=== PATIENT | female | born 2000 | race Caucasian/White ===

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

== ENCOUNTER → 2020-05-19 | Outpatient (CLI) | payer OTHER, SELFPAY ==
[2020-05-19 09:03] VITALS: BMI 30.4
[2020-05-19 12:43] LABS: Absolute Lymphocyte Count 2.81 X10^3/uL (0.83-4.51); Absolute Neutrophil Count 5.2 X10^3/uL (2.0-7.7); Basophil# 0.05 X10^3/uL; Basophil% 0.6 % (0-1); Eosinophil# 0.25 X10^3/uL; Eosinophils% 2.8 % (0-5); Hematocrit 44.6 % (37-47); Hemoglobin 14.1 g/dL (12.0-15.0); Lymphocyte # 2.81 X10^3/ul (4.0); Lymphocyte % 31.5 % (19-41); Mean Corp Hgb Conc 31.6 g/dL (32-36); Mean Corpuscular Hgb 29.1 pg (27.0-32.0); Mean Platelet Vol. 9.2 fl (6.2-12.0); Monocyte# 0.63 X10^3/uL; Monocyte% 7.1 % (0-10); NRBC Flagged by Analyzer 0 % (0-5); Neutrophil # 5.16 X10^3/uL (2.7-7.7); Neutrophil % 57.8 % (47-70); Platelet Count 325 K/mm3 (150-450); RBC Distribution Width CV 12.2 % (11.6-14.6); RBC Distribution Width SD 40.9 fl (35.1-43.9); Red Blood Count 4.85 M/mm3 (4.2-5.4); White Blood Count 8.9 K/mm3 (4.4-11.0)
[2020-05-19 12:58] LABS: ALB/GLOB Ratio 1.1 RATIO (0.9-2.4); AST(SGOT) 13 U/L (15-37); Alanine Aminotransfer ALT/SGPT 19 U/L (13-56); Albumin, Serum 4.4 g/dL (3.2-5.0); Alkaline Phosphatase 74 U/L (45-117); Anion Gap 6 (5-15); BUN 10 mg/dL (7-18); BUN/Creat Ratio 14.2 RATIO (10-20); Calcium,Total 9.1 mg/dL (8.5-10.1); Chloride 106 mmol/L (98-107); EST Glomerular Filtration Rate 113 mL/min (>60); Est Glom Filt Rate - Afr Amer 137 mL/min (>60); Glucose 94 mg/dL (74-106); Potassium 3.8 mmol/L (3.5-5.1); Protein, Total 8.4 g/dL (6.4-8.2); Sodium Level 137 mmol/L (136-145); T4 Free Direct 1.16 ng/dL (0.76-1.46); Thyroid Stim Hormone (TSH) 3.38 uIU/mL (0.358-3.74)
== END | disposition home or self-care (01) ==
PROVIDERS: PCP Internal Medicine; Referring Provider Internal Medicine; Visit Provider Internal Medicine
DX: F32.9 Major depressive disorder, single episode, unspecified (principal); F41.9 Anxiety disorder, unspecified
CPT/HCPCS: 36415; 80053; 84439; 84443; 85025

== ENCOUNTER 2021-01-11 07:28 | Day surgery (SDC) | payer OTHER, SELFPAY ==
[2020-06-23 10:44] VITALS: BMI 30.1
[2021-01-11] VITALS (10 sets, daily range): BP systolic 88–127; BP diastolic 47–75; PULSE 58–92; RESP 16; TEMP 36–36.6; O2SAT 92–99; BMI 30.4
[2021-01-11 07:54] LABS: Internal QC Validated? YES +Cl - CLEAR BKGD; Pregnancy, Urine Negative Negative
[2021-01-11] MEDS: Lactated Ringers 1,000 ML 100 ML IV ×2 (08:10→10:35)
--- NOTE | 2021-01-11 09:02 | DCINST_ITS ---
Discharge Diet: Soft diet Discharge Activity: Return to Normal Activity Additional Activity Instructions:: Soft diet x 2 weeks Allergies/Adverse Reactions: Allergies No Known Allergies Allergy (Verified 01/06/21 11:36) Medications to take at Discharge Albuterol IH (ProAir) [Proair Hfa (SP)Vent Pts] 1 puff INHALATION DAILY PRN 01/06/21 Escitalopram Oxalate [Lexapro] 15 mg PO DAILY 01/11/21 Primary Care Physician: Nemo Easton PA [Primary Care Provider] - Test Results: Test results from this visit will be discussed in further detail at your follow- up appointment, if applicable.
--- NOTE | 2021-01-11 09:10 | TONS_PTH ---
PATIENT: SUSAN RODRIGUEZ LOC: [facility] [place] U#:[id number] AGE/SX: 20/F ROOM: RE01/11/[address]: Dr. Jake Frost MD : 2000 BED: DIS: 01/11/2021 SPEC #: [id number] RECD: 01/11/21 12:28 STATUS: RUI REQuan #: [id number] KOMAL: 01/11/21 09:[address]: Jake Frost DEPT: SURGICAL PATHOLOGY RECD BY: Shikha Alberts ENTERED: 01/12/21 07:45 SP TYPE: TONSILS OTHR DR: YESSI Landaverde Tissues: Tonsil, NOS Procedures: Surgery Specimen Level III HEADER OPERATION: Tonsillectomy PRE-OP DIAGNOSIS: Chronic tonsillitis TISSUE SUBMITTED: Bilateral tonsils, tie on right MICROSCOPIC DIAGNOSIS Right and left tonsils, bilateral tonsillectomies: Benign lymphoid hyperplasia, consistent with chronic tonsillitis. Organisms consistent with actinomyces. AM:maricel 01/13/2021 MICROSCOPIC DESCRIPTION Slides are reviewed. GROSS DESCRIPTION Received is one container labeled with the patient's name and designated tonsils - pin/tie on right are two tonsils that in aggregate weigh 14.4 gm. The right tonsil has a pin-tie on it and measures 3.2 x 2.2 x 1.5 cm. The left tonsil measures 3.5 x 2.3 x 1.5 cm. Both tonsils are similar in appearance. The external surfaces are pink-price, smooth, glistening and somewhat lobulated. Focally they are hemorrhagic, granular and bear cautery artifact. Serial cross sections through the tonsils reveal normal tonsillar architecture. Sections are submitted in two cassettes as follows: 1 - right tonsil, 2 - left tonsil. / AM:maricel 01/12/21 TC:5 CPT: 99709 x2
[2021-01-11] MEDS: Bupivacaine Mpf 0.5% 30 ML VIAL (09:54)
--- NOTE | 2021-01-11 10:11 | PCM.OPRPT ---
Report of Operation Date of Procedure: 01/11/21 Pre-Operative Diagnosis: chronic tonsillitis. tonsillar hypertrophy Post-Operative Diagnosis: same Surgery/Procedure Performed:: tonsillectomy Description of Surgical Findings:: 3+ tonsils Type of Anesthesia:: General Anesthesiologist: Umair Anne Estimated Blood Loss (mL): minimal Description of Procedure: The patient was taken to the OR on 152. The patient was placed in the supine position on the OR table. The patient was given sufficient general endotracheal anesthesia. The table was turned 90 degrees clockwise. A Apollo mouthgag was inserted into the patient's mouth. The patient was suspended on a Givens stand. The adenoid was inspected and found to be surgically absent. The right tonsil was grasped with an Allis clamp and removed using a bovie cautery. Absolute hemostasis was achieved using suction cautery. The left tonsil was grasped with an Allis clamp and removed using a bovie cautery. Absolute hemostasis was achieved using suction cautery. .5% marcaine was placed on an adenoid sponge and placed in each tonsillar fossa for one minute on each side and then removed. The gag was closed. It was re opened to inspect for bleeding and there was none. The gag was then removed. The patient was then awoken and brought to the recovery room in stable condition. Blood loss minimal, replacement none. Sponge, needle and instrument count were correct at the end of the procedure.
== END 2021-01-11 13:08 | disposition home or self-care (01) ==
LOC: SDC 07:29 → AC 07:30
PROVIDERS: Anesthesiology; PCP Physician Assistant; Referring Provider Otolaryngology; Visit Provider Otolaryngology
PROC: (CPT 42826; principal; 2021-01-11 08:55)
DX: J35.01 Chronic tonsillitis (principal); J45.909 Unspecified asthma, uncomplicated; Z79.51 Long term (current) use of inhaled steroids; Z20.822 Contact with and (suspected) exposure to COVID-19
CPT/HCPCS: 42826; 81025; 87426; 88304; J7120; A4216

== ENCOUNTER 2023-03-24 15:00 | Outpatient (RCR) | payer OTHER, SELFPAY ==
--- NOTE | 2023-02-28 07:59 | HP.PTEVAL ---
Patient's Visit Information SUSAN RODRIGUEZ is a 22 year old F referred to Physical Therapy by Dr. Елена Patten DC with a diagnosis of Acquired L hip dysplasia. Date of Evaluation: 02/23/23 Physical Therapist: Dallas Delgado DPT - Visit Plan Frequency: 2x /Week Duration: 6 Weeks Plan: Start with manual to L hip flexor group. Add in glute med/max strengthening. Add in core stability exercises without flaring her hip flexor. Add in hip ROM exercises working on restoring full mobility. - Subjective pt. is here today for her initial evaluation with diagnosis of L hip dysplasia. Pt. reports having increased L hip pain for years, but has become worse more recently. She was to have a hip labral repair a few years ago, but ultimately decided not to have done. Pt. is now having increased L hip pain with standing, walking and her job activities. 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 Pt. denies N/T in either LE. Pt. is having pain at anterior hip and occasionally laterally as well. Pt. reports no R hip pain currently. She is having issues with sleeping at times. She has pain with getting in/out of her car as well. Pt. is hopeful to avoid surgery and get back to all recreational and work activities without limitations. - Pain L hip pain Pain Intensity (Out of 10): 1 Pain Intensity Range: 0, 5 - Objective POSTURE: pt. has decent posture in stance. Normal and equal iliac crest heights. slight increase in lumbar lordosis. PALPATION: Pt. has increased tenderness at L hip flexor and anterior hip. Pt. has some mild pain with palpation of TFL and increase glute medius as well. No distal symptoms. NEURO: Pt. has normal sensation in BLEs and normal DTR of BLEs. Pt. is able to rise on heels and toes without issues. ROM: R hip: flexion 130deg NE, abd 45deg NE, ext 20deg NE, ER60 deg NE, IR 30deg NE. L hip: flexion 110deg mild increase NW, ext 20deg NE, ER 50deg mild increase NW, IR 25deg increase NW. Pt. has normal lumbar ext/flexion mild increase in low back pain, but no hip pain. MMT: RLE: 5/5 throughout. LLE: ankle and knee 5/5 throughout. L hip: flex 4/5 increase NW, abd 4/5 NE, ext 4+/5 NE, ER 4+/5 NE, IR 4+/5 NE. Core strength- fair-. GAIT: pt. has B femoral IR in stance, worse with gait. No major Trendelenburg noted. She is able to correct, but unable to maintain. SQUAT: fairly normal with a R lateral wt. shift noted. - Special Tests L Hip Scour: Positive L Hip FADDIR - Labrum: Positive L Hip Impingement Provocation - Labrum: Positive L Hip Omar - IT Band: Negative Comment: weakness of glute medius - Balance/Special Test Scores Lower Extremity Functional Score: 66 - Goals Goal 1:: LTG: Pt. to be I with HEP for core and hip strengthening. Goal Time Frame: 4-6 Weeks Goal 2:: LTG: Pt. to have no pain with walking and work related activities. Goal Time Frame: 4-6 Weeks Goal 3:: STG: pt. to be able to sit and walk without increase in psoas pain of L hip. Goal Time Frame: 2-4 Weeks Goal 4:: LTG: pt. to have increased core and hip strength to 5/5 throughout. Goal Time Frame: 4-6 Weeks Goal 5:: STG: Pt. to sleep throughout the night without increase in symptoms. Goal Time Frame: 2 Weeks - Rehabilitation Potential Physical Therapy Diagnosis: Pt. has signs and symptoms consistent with L hip dysplasia with most likely a L hip labral tear. I would suggest that she work on manual techniques to reduce psoas pain, strengthening core/hip and stretch of hip flexor and hip ROM as tolerated in order to get back to all previous activities. Rehabilitation Potential: Good - Anticipated Interventions Patient/Client Instruction: Educate patient on: Condition, Plan of Care, Risk Factors, Benefits of Fitness Program For the Purpose of:: To facilitate caregiver knowledge, To improve self management, To prevent re-injury, To improve ability to perform tasks related to life management, To improve tolerance to ADL's Therapeutic Exercise to Include: Strength training, Power training, Endurance training, Body mechanics, Postural training, Flexibilty training For the Purpose of:: To decrease pain, To increase ROM, To improve nutrient delivery to tissue, To increase oxygenation perfusion, To improve muscle performance and motor function, To improve ability to perform ADL's Thank you for the opportunity to evaluate your patient. For Medicare and Medicare HMO plans, please review the plan of care and approve it. It will need to be FAXED BACK to us at [phone] for Medicare purposes. For Medicare only, by signing this I certify the plan of care. Please let me know if there are questions or concerns regarding this plan of care. Physician Signature: Date:
--- NOTE | 2023-03-24 15:21 | HP.PTREVAL ---
Dr. Елена Patten, TIMA, It has been my pleasure to treat SUSAN RODRIGUEZ over the last 7 visits for Acquired Left hip dysplasia. Please see the progress note below for an update on the physical therapy plan of care! Subjective: Pt. reports being 96% better overall. No pain noted. Pt. pleased. Pt. reports having no issues with work or recreational activities at this point in time. Objective/Function: Pt. has good ROM, mild HS tightness. She has no symptoms with all ROM testing, even with PHONG and FADDIR movements. MMT: Pt. has equal and good strength 5/5 throughout BLEs. Pt. had very mild symptoms with L hip IR testing, but rest was normal. Pt. reports no pain or issues with walking, and no issues with work activities. GAIT: fairly normal gait pattern, she still has some mild B femoral IR during stance phase of gait pattern, but equally bilerally. No pain with squatting either. pt. is overall doing very well. Plan Plan: Pt. to trial exercises on her own then follow up with Pt if needed. If I do not hear from her in the next 2 weeks I will DC back to physician. Balance/Gait/Functional tests - Balance/Special Test Scores Lower Extremity Functional Score: 78 Goals Goal 1:: LTG: Pt. to be I with HEP for core and hip strengthening. Goal Time Frame: 4-6 Weeks Goal Progress: Goal Met Goal 2:: LTG: Pt. to have no pain with walking and work related activities. Goal Time Frame: 4-6 Weeks Goal Progress: Goal Met Goal 3:: STG: pt. to be able to sit and walk without increase in psoas pain of L hip. Goal Time Frame: 2-4 Weeks Goal Progress: Goal Met Goal 4:: LTG: pt. to have increased core and hip strength to 5/5 throughout. Goal Time Frame: 4-6 Weeks Goal Progress: Goal Met Goal 5:: STG: Pt. to sleep throughout the night without increase in symptoms. Goal Time Frame: 2 Weeks Goal Progress: Goal Met Anticipated Interventions Patient/Client Instruction: Educate patient on: Condition, Plan of Care, Risk Factors, Benefits of Fitness Program For the Purpose of:: To facilitate caregiver knowledge, To improve self management, To prevent re-injury, To improve ability to perform tasks related to life management, To improve tolerance to ADL's Therapeutic Exercise to Include: Strength training, Power training, Endurance training, Body mechanics, Postural training, Flexibilty training For the Purpose of:: To decrease pain, To increase ROM, To improve nutrient delivery to tissue, To increase oxygenation perfusion, To improve muscle performance and motor function, To improve ability to perform ADL's Please do not hesitate to contact me at [phone] by phone or if you have questions or concerns regarding this new plan of care! Sincerely, HIRAL LamT
--- NOTE | 2023-07-24 09:00 | HP.PT.NRP ---
Patient Information Patient Information: SUSAN RODRIGUEZ was seen in my office for initial evaluation on 02/23/23. The following Plan of Care was established for this patient: POC Established Initial Frequency: 2x /Week Initial Duration: 6 Weeks Anticipated Interventions Patient/Client Instruction: Educate patient on: Condition, Plan of Care, Risk Factors and Benefits of Fitness Program For the Purpose of:: To facilitate caregiver knowledge, To improve self management, To prevent re-injury, To improve ability to perform tasks related to life management and To improve tolerance to ADL's Therapeutic Exercise to Include: Strength training, Power training, Endurance training, Body mechanics, Postural training and Flexibilty training For the Purpose of:: To decrease pain, To increase ROM, To improve nutrient delivery to tissue, To increase oxygenation perfusion, To improve muscle performance and motor function and To improve ability to perform ADL's Last Seen Last Seen: This patient was last seen in our office 03/24/23. Pertinent comments regarding their Physical therapy will appear below: Pt. was seen for her hip dysplasia. She did very well with her strength. She was to complete exercises on her own at our last visit. Pt. has not been seen in several months and will be DC from PT at this point in time. At this point I will be discontinuing this patient from physical therapy. I would be happy to see this patient again in the future if found appropriate by the physician. Thank you! Dallas Delgado, DPT Balance/Gait/Functional tests Balance/Special Test Scores Lower Extremity Functional Score: 78
== END 2023-03-24 19:00 | disposition home or self-care (01) ==
LOC: PT 15:00
PROVIDERS: PCP Physician Assistant; Referring Provider Chiropractor; Visit Provider Chiropractor
DX: M21.852 Other specified acquired deformities of left thigh (principal); M99.05 Segmental and somatic dysfunction of pelvic region
CPT/HCPCS: 97110; 97161; 97164

== ENCOUNTER 2024-03-29 05:59 | Emergency (ER) | payer OTHER, SELFPAY ==
[2024-03-29 06:00] VITALS: BP 145/111; PULSE 87; RESP 16; TEMP 36; O2SAT 99; BMI 29.3
--- NOTE | 2024-03-29 06:07 | CT_ITS ---
STUDY: CT ABDOMEN AND PELVIS WITH CONTRAST REASON FOR EXAM: Female, 23 years old. Abdominal pain -- RADIATION DOSAGE (If Supplied By Facility): CTDIvol = ( 12.54 ) mGy, DLP = ( 762.12 ) mGycm TECHNIQUE: Transaxial images were obtained from the dome of the diaphragm to the symphysis pubis with oral contrast. IV ; 100mL Isovue-300 was administered. Sagittal and coronal images were reconstructed. Individualized dose optimization techniques were used for this CT. COMPARISON: None. FINDINGS: The visualized lung bases are unremarkable. The visualized portions of the heart are within normal limits. Normal liver. Normal gallbladder and extrahepatic biliary system. Normal spleen. Normal pancreas. Normal bilateral adrenal glands. Normal right kidney. Normal left kidney. Normal visualized stomach. Normal small intestine. Normal colon. The appendix is visualized and appears normal. Normal abdominal aorta. Normal inferior vena cava. Normal retroperitoneum. Normal urinary bladder. Normal visualized uterus. There are adnexal follicles. There is mild free fluid in the pelvis. Normal abdominal wall. Normal osseous structures. CT/Abdomen/Pelvis WITH Contrast IMPRESSION: Normal enhanced CT of the abdomen and pelvis. No mass or obstruction. No hydronephrosis. Electronically Signed: Lucas Chavez MD at 8:15 EDT ,
--- NOTE | 2024-03-29 06:08 | EDS_ITS ---
HPI HPI - GI History of Present Illness Chief Complaint: Abd Pain Detail of Chief Complaint: Abdominal pain Narrative Narrative: Patient presents with abdominal pain that she has had off and on for the last 2 days. Pain more continuous over the last several hours. She describes some mild nausea but no vomiting. Yesterday had some urinary frequency. Yesterday also had a small amount of vaginal bleeding and she is midcycle on her.. Her last period was 2 weeks ago. Patient has had no prior abdominal surgeries. She denies blood in her stool or black tarry stool. Last bowel movement was yesterday. Currently rates her pain a 5 out of 10. [facility] Medical History Acquired dysplasia of left hip Anxiety Depression Seasonal allergies Home Medications ?Medication ?Instructions ?Recorded ?Last Taken ?Type escitalopram oxalate 10 mg tablet 15 mg PO DAILY 01/11/21 Unknown History buspirone 5 mg tablet 5 mg PO BID 02/06/23 Unknown History Allergy/AdvReac Type Severity Reaction Status Date / Time No Known Allergies Allergy Verified 02/14/23 15:04 Family History Grandfather Hypertension Diabetes Myocardial infarction CVA (cerebral vascular accident) Surgical History H/O wisdom tooth extraction History of adenoidectomy Social History Smoking Status: Current every day smoker tobacco type: e-cigarettes Electronic Cigarette Use: with nicotine alcohol intake: current alcohol intake frequency: a few times a month substance use type: marijuana and other details: Medical marijuana card what type of physical activity do you participate in: walking, aerobics and weight training frequency: daily ROS ROS ED Review of Systems ROS Unobtainable: other Constitutional Constitutional ED: Reports lethargy; Denies chills, fever(s), sweats or weight loss Eyes Eyes: Denies blurry vision, change in vision or diplopia ENT ENT ED: Denies rhinorrhea or sore throat Cardiovascular Cardiovascular: Denies chest pain, orthopnea or racing heartbeat Respiratory/Chest Respiratory/Chest: Denies cough, dyspnea, dyspnea on exertion, orthopnea or sputum Gastrointestinal Gastrointestinal: Reports abdominal pain; Denies diarrhea, nausea or vomiting Genitourinary Genitourinary ED: Denies dysuria, hematuria or urinary frequency Musculoskeletal Musculoskeletal: Denies arthralgias, back pain, myalgias or neck pain Integumentary Denies abscess, Abrasions or rash Neurologic Neurologic: Denies headache(s) or weakness Psychiatric Psychiatric: Denies anxiety, depression or suicidal thoughts Endocrine Endocrinology: Denies polydipsia, polyphagia or polyuria Hematologic/Lymphatic Hematologic/Lymphatic: Denies easy bleeding, easy bruising or lymphadenopathy Allergic/Immunologic Allergic/Immunologic ED: Denies mouth swelling, tongue swelling or urticaria EXAM Physical Exam Const Vital Signs: 03/29/24 06:00 03/29/24 06:11 Temperature 96.8 F L Temperature Source Temporal Pulse Rate 87 70 Respiratory Rate 16 18 Blood Pressure 145/111 H 158/96 H Blood Pressure Mean 122 116 Pulse Ox 99 100 Oxygen Delivery Method Room Air Room Air Positive well nourished and well developed General Appearance ED: well developed and NAD HEENT Reports TM's clear and moist mucous membranes normocephalic and atraumatic; Negative for trauma or tenderness Tympanic Membrane ED: Yes TM's clear Eyes PERRL and EOMs intact bilaterally General Eye ED: Negative for pale conjunctiva or scleral icterus Neck no lymphadenopathy, supple and no JVD General: Negative for tenderness Chest Wall inspection of chest normal and palpation of chest normal Chest: Negative for tenderness Resp normal respiratory effort and clear to auscultation bilaterally Effort and Inspection: Negative for respiratory distress or pain with movement Auscultation: Negative for rhonchi, wheezes or diminished lung sounds Cardio regular rate, regular rhythm, S1 normal heart sound, S2 normal heart sound and no murmurs Peripheral Pulses: pulses 2+ throughout GI normal to inspection, nondistended, normoactive bowel sounds, soft to palpation, non-distended and no masses GI Narrative: Tenderness palpation to the lower abdomen over the right lower quadrant seems to be point of maximum tenderness. Also with mild tenderness over the suprapubic region. There is no rebound, rigidity, or peritoneal signs. No mass palpated. Back/Spine no CVA tenderness and no thoracic nor lumbar tenderness Extremity normal to inspection General Extremety ED: Negative for edema General Extremity: Negative for edema Neuro oriented x3, CN's II-XII intact bilaterally, no sensory deficits noted and gait normal Sensorium / Orientation: awake, alert, oriented to person, oriented to place and oriented to time Motor Exam: strength 5/5 throughout and strength abnormal Psych mental status grossly normal Skin no rashes or lesions noted and no wounds MDM MDM MDM Narrative Medical decision making narrative: Patient presents with abdominal pain for several days that seems to be more localized to the right lower quadrant. Patient midcycle on her menstrual period. Will obtain basic labs as well as test and urinalysis. Will obtain a CT scan of the abdomen pelvis with IV p.o. contrast to rule out appendicitis. Patient was medicated with morphine and Zofran. Care of patient will be turned over to morning physician awaiting CT results and final disposition. Lab Data Attestation: I reviewed the patient's lab results. Labs: Laboratory Results - last 24 hr 03/29/24 06:11 WBC 9.0 RBC 4.46 Hgb 13.0 Hct 41.0 MCV 91.9 MCH 29.1 MCHC 31.7 L RDW Std Deviation 40.7 RDW Coeff of George 11.9 Plt Count 260 MPV 9.0 Immature Gran % (Auto) 0.300 Neut % (Auto) 56.0 Lymph % (Auto) 33.4 [place] % (Auto) 6.5 Eos % (Auto) 3.1 Baso % (Auto) 0.7 Absolute Neuts (auto) 5.0 Absolute Lymphs (auto) 3.00 Nucleated RBC % 0 Sodium 139 Potassium 3.3 L Chloride 109 H Carbon Dioxide 26.0 Anion Gap 4 L BUN 8 Creatinine 0.68 Estim Creat Clear Calc 124.88 Est GFR (MDRD) Af Amer 138 Est GFR (MDRD) Non-Af 114 BUN/Creatinine Ratio 11.8 Glucose 97 Calcium 8.8 Total Bilirubin 0.30 AST 14 L ALT 18 Alkaline Phosphatase 50 Total Protein 6.9 Albumin 3.8 Globulin 3.1 Albumin/Globulin Ratio 1.2 Lipase 22 Discharge Plan Triage Chief Complaint: Abd Pain ED Provider: Becky Torres Dx/Rx/DC Orders Clinical Impression: Abdominal pain Prescriptions: No Action buspirone 5 mg tablet 5 mg PO BID escitalopram oxalate 10 MG tablet 15 mg PO DAILY Rx Instructions: CURRENTLY ON HOLD FOR THE PAST MONTH Primary Care Provider: Nemo Easton Referrals: Nemo Easton PA [Primary Care Provider] - Print Language: Luxembourgish
[2024-03-29 06:11] VITALS: BP 158/96; PULSE 70; RESP 18; O2SAT 100
[2024-03-29] MEDS: Ondansetron 4 MG/2 ML Vial IV (06:16)
[2024-03-29] MEDS: Morphine 4 MG/ML Syringe IV ×2 (06:16→08:15)
[2024-03-29] MEDS: 0.9% Normal Saline (1000mL) 1,000 ML 125 ML IV (06:17)
[2024-03-29 06:18] LABS: Basophil# 0.06 X10^3/uL; Basophil% 0.7 % (0-1); Eosinophil# 0.28 X10^3/uL; Eosinophils% 3.1 % (0-5); Lymphocyte % 33.4 % (19-41); Mean Corp Hgb Conc 31.7 g/dL (32-36); Mean Corpuscular Hgb 29.1 pg (27.0-32.0); Mean Corpuscular Volume 91.9 fL (81-99); Monocyte# 0.58 X10^3/uL; Monocyte% 6.5 % (0-10); NRBC Flagged by Analyzer 0 % (0-5); Neutrophil # 5.03 X10^3/uL (2.7-7.7); Platelet Count 260 K/mm3 (150-450); RBC Distribution Width CV 11.9 % (11.6-14.6); RBC Distribution Width SD 40.7 fl (35.1-43.9); Red Blood Count 4.46 M/mm3 (4.2-5.4)
[2024-03-29 06:36] LABS: ALB/GLOB Ratio 1.2 RATIO (0.9-2.4); AST(SGOT) 14 U/L (15-37); Alanine Aminotransfer ALT/SGPT 18 U/L (13-56); Albumin, Serum 3.8 g/dL (3.2-5.0); Alkaline Phosphatase 50 U/L (45-117); Anion Gap 4 (5-15); BUN 8 mg/dL (7-18); BUN/Creat Ratio 11.8 RATIO (10-20); Calcium,Total 8.8 mg/dL (8.5-10.1); Chloride 109 mmol/L (98-107); Creatinine, Serum 0.68 mg/dL (0.55-1.02); EST Glomerular Filtration Rate 114 mL/min (>60); Est Glom Filt Rate - Afr Amer 138 mL/min (>60); Estimated Creatinine Clearance 124.88 ml/min; Globulin 3.1 g/dL (2.2-4.2); Glucose 97 mg/dL (74-106); Lipase 22 U/L (13-75); Potassium 3.3 mmol/L (3.5-5.1); Protein, Total 6.9 g/dL (6.4-8.2); Sodium Level 139 mmol/L (136-145)
[2024-03-29 06:43] LABS: Internal QC Validated? YES +Cl - CLEAR BKGD; Pregnancy, Serum, hCG Quali. NEGATIVE Negative
[2024-03-29 07:03] LABS: Mucous, Urine 0 SEEN /hpf (<or=2+)
[2024-03-29 07:35] LABS: Color, Urine Yellow (Yellow); Glucose, Dipstick Normal (Normal); Ketone-Dipstick Negative (Negative); Leukocyte Esterase-Dipstick 100 /ul (Negative); Nitrite-Dipstick Negative (Negative); Occult Blood-Urine 25 /ul (Negative); Protein-Dipstick Negative (Negative); Specific Gravity, Urine 1.015 (1.002-1.030); Urine Bilirubin Dipstick Negative (Negative); Urine Clarity Clear (Clear); Urine Urobilinogen Normal (Normal); Urine pH 6.5 (5.0 - 8.0)
[2024-03-29 07:55] LABS: Bacteria 1+ /hpf (None Seen); Red Blood Cells-Urine 0-5 SEEN /hpf (0-5); White Blood Cells 10-25 SEEN /hpf (0-5)
[2024-03-29 07:58] LABS: Squamous Epithelial Cells - UA 0-5 SEEN /hpf (5-10)
[2024-03-29 08:00] VITALS: BP 148/88; PULSE 71; RESP 16; O2SAT 100
[2024-03-29] MEDS: Ketorolac 15 MG/ML Vial IV (08:15)
[2024-03-29 10:00] VITALS: BP 136/84; PULSE 74; RESP 16; O2SAT 98
[2024-03-29 10:07] VITALS: BP 136/84; PULSE 74; RESP 16; TEMP 37.1; O2SAT 98
== END 2024-03-29 10:09 | disposition home or self-care (01) ==
PROVIDERS: Emergency Provider Emergency Medicine; PCP Physician Assistant; Visit Provider Emergency Medicine
DX: R10.9 Unspecified abdominal pain (principal); F17.290 Nicotine dependence, other tobacco product, uncomplicated; R35.0 Frequency of micturition
CPT/HCPCS: 74177; 80053; 81001; 83690; 84703; 85025; 87086; 87088; 96361; 96374; 96375; 96376; 99283; J7030; Q9967; A4216; J2405

== ENCOUNTER → 2024-04-11 | Outpatient (CLI) | payer OTHER, SELFPAY ==
--- NOTE | 2024-04-11 14:24 | US_ITS ---
STUDY: ULTRASOUND OF THE FEMALE PELVIS - COMPLETE REASON FOR EXAM: Female, 23 years old. ABD PAIN LMP: March 18, 2024 TECHNIQUE: Transabdominal TECHNICAL QUALITY: Adequate. COMPARISON: None. FINDINGS: The uterus is retroverted and is in a midline position. The uterus measures 8.6 cm x 5.6 x 4.6 cm. Normal uterine cervix. The endometrium measures 8.6 mm in thickness, and is hyperechoic. There is no demonstrated endometrial mass. There is no demonstrated myometrial mass. I.U.D. - The patient does not have an I.U.D. The right ovary is visualized. The right ovary measures 4.4 cm x 4.2 cm x 3.2 cm. There is a 3.2 cm x 2.9 cm x 2.8 cm complex cyst in the right ovary. There is no visualized right adnexal mass or complex lesion. There is normal arterial and normal venous vascularity. The left ovary is visualized. The left ovary measures 4 cm x 2.4 cm x 1.8 cm. There is no left ovarian cyst or ovarian mass. There is no visualized left adnexal mass or complex lesion. There is normal arterial and normal venous vascularity. There is minimal fluid in the cul-de-sac. The pre void volume of the bladder was 285 ml. US/Pelvic (Non ) IMPRESSION: 3.2 cm x 2.9 cm x 2.8 cm complex cyst in the right ovary. Follow-up recommended. Electronically Signed: Richard Shore MD at 10:53 EDT ,
== END | disposition home or self-care (01) ==
LOC: US 14:21
PROVIDERS: PCP Physician Assistant; Referring Provider Physician Assistant; Visit Provider Physician Assistant
DX: R10.9 Unspecified abdominal pain (principal)
CPT/HCPCS: 76856

== ENCOUNTER 2024-04-20 08:04 | Emergency (ER) | payer OTHER, SELFPAY ==
[2024-04-20 08:05] VITALS: BP 156/90; PULSE 69; RESP 14; TEMP 36.2; O2SAT 98; BMI 29.5
[2024-04-20 08:06] VITALS: BP 156/90; PULSE 69; RESP 14; O2SAT 99
--- NOTE | 2024-04-20 08:32 | US_ITS ---
INDICATION: right ovarian cyst, increased pain EXAMINATION: Ultrasound US Transvaginal Non-OB TECHNIQUE: Transvaginal (for optimal evaluation of the adnexa) pelvic ultrasound was performed. Grayscale, spectral waveform, and color flow Doppler evaluation of the adnexa. COMPARISON: No relevant prior comparison study available FINDINGS: UTERUS: Retroflexed. The uterus measures 7.4 x 4.4 x 3.8 cm. There is no uterine mass. The endometrial stripe measures 4 mm in AP diameter which is within normal limits. RIGHT OVARY: 4.1 x 2.6 x 2.5 cm. Non-enlarged, normal echogenicity. Dominant follicle in right ovary measuring 1.5 cm. There is normal arterial inflow and venous outflow present in the right ovary. LEFT OVARY: 4 x 2.5 x 1.7 cm. Non-enlarged, normal echogenicity. There is normal arterial inflow and venous outflow present in the left ovary. FREE FLUID: Mild free fluid in the right adnexal region. US/Transvaginal Non- IMPRESSION: Mild free fluid pelvis. Otherwise essentially unremarkable examination. Electronically Signed: Isrrael Arciniega MD at 10:42 EDT ,
--- NOTE | 2024-04-20 08:32 | US_ITS ---
INDICATION: abd pain EXAMINATION: Ultrasound US Abdomen Limited (quadrant) TECHNIQUE: Smith scale and color doppler imaging was performed of the right upper quadrant. COMPARISON: CT scan of the abdomen and pelvis of 03/29/2024 FINDINGS: LIVER: The liver is normal in size and echogenicity measuring about 16.6 cm in length. The portal vein is patent with normal hepatopedal flow. No focal hepatic lesion. There is no free fluid. GALLBLADDER AND BILIARY TREE: No shadowing gallstone, pericholecystic fluid or gallbladder wall thickening is demonstrated. The gallbladder wall measures 2 mm. The proximal common bile duct measures 2.5 mm, which is within normal limits for the patient''s age. Sonographic Ledesma''s sign: Negative. PANCREAS: No focal abnormality is demonstrated in the pancreas. No pancreatic ductal dilatation. RIGHT KIDNEY: Right kidney measures 10.5 cm in length. The renal cortex measures 1 cm. No evidence of hydronephrosis. US/Gallbladder IMPRESSION: No acute sonographic abnormality is demonstrated in the right upper quadrant. Electronically Signed: Isrrael Arciniega MD at 10:39 EDT ,
[2024-04-20] MEDS: Ondansetron 4 MG/2 ML Vial IV (08:42)
[2024-04-20] MEDS: Morphine 4 MG/ML Syringe IV (08:43)
[2024-04-20 09:00] LABS: Absolute Lymphocyte Count 2.87 X10^3/uL (0.83-4.51); Absolute Neutrophil Count 4.4 X10^3/uL (2.0-7.7); Basophil# 0.07 X10^3/uL; Basophil% 0.9 % (0-1); Eosinophils% 3.7 % (0-5); Hematocrit 35.5 % (37-47); Hemoglobin 11.5 g/dL (12.0-15.0); Lymphocyte # 2.87 X10^3/ul (0.83-4.51); Mean Corp Hgb Conc 32.4 g/dL (32-36); Mean Corpuscular Hgb 29.4 pg (27.0-32.0); Mean Corpuscular Volume 90.8 fL (81-99); Mean Platelet Vol. 9.3 fl (6.2-12.0); Monocyte# 0.58 X10^3/uL; Monocyte% 7.1 % (0-10); NRBC Flagged by Analyzer 0 % (0-5); Neutrophil # 4.36 X10^3/uL (2.7-7.7); Neutrophil % 53.2 % (47-70); POSITIVE COUNT YES; RBC Distribution Width CV 11.6 % (11.6-14.6); RBC Distribution Width SD 38.6 fl (35.1-43.9); Red Blood Count 3.91 M/mm3 (4.2-5.4); White Blood Count 8.2 K/mm3 (4.4-11.0)
[2024-04-20 09:06] LABS: Internal QC Validated? YES +Cl - CLEAR BKGD; Pregnancy, Serum, hCG Quali. NEGATIVE Negative
[2024-04-20] MEDS: 0.9% Normal Saline (1000mL) 1,000 ML 150 ML IV (09:16)
[2024-04-20 09:17] LABS: AST(SGOT) 25 U/L (15-37); Alanine Aminotransfer ALT/SGPT 16 U/L (13-56); Albumin, Serum 3.8 g/dL (3.2-5.0); Alkaline Phosphatase 76 U/L (45-117); Anion Gap 6 (5-15); BUN 11 mg/dL (7-18); Calcium,Total 9.2 mg/dL (8.5-10.1); Chloride 106 mmol/L (98-107); Creatinine, Serum 0.73 mg/dL (0.55-1.02); EST Glomerular Filtration Rate 104 mL/min (>60); Est Glom Filt Rate - Afr Amer 126 mL/min (>60); Estimated Creatinine Clearance 116.82 ml/min; Globulin 3.9 g/dL (2.2-4.2); Glucose 91 mg/dL (74-106); Potassium 3.8 mmol/L (3.5-5.1); Protein, Total 7.7 g/dL (6.4-8.2); Sodium Level 137 mmol/L (136-145)
[2024-04-20 09:24] LABS: Differential Indicated SCAN CRITERIA MET; Platelet Estimate ADEQUATE (ADEQ)
[2024-04-20 10:00] LABS: Mucous, Urine 0 SEEN /hpf (<or=2+)
[2024-04-20 10:02] LABS: Color, Urine Yellow (Yellow); Glucose, Dipstick Normal (Normal); Ketone-Dipstick Negative (Negative); Leukocyte Esterase-Dipstick 25 /ul (Negative); Nitrite-Dipstick Negative (Negative); Occult Blood-Urine 10 /ul (Negative); Protein-Dipstick 15 mg/dl (Negative); Specific Gravity, Urine 1.015 (1.002-1.030); Urine Bilirubin Dipstick Negative (Negative); Urine Clarity Sl. Cloudy (Clear); Urine Urobilinogen Normal (Normal)
[2024-04-20 10:09] LABS: Bacteria 2+ /hpf (None Seen); Calcium Oxalate Crystals Ur RARE /hpf (<or=2+); Red Blood Cells-Urine 0-5 SEEN /hpf (0-5); Squamous Epithelial Cells - UA 0-5 SEEN /hpf (5-10); White Blood Cells 0-5 SEEN /hpf (0-5)
--- NOTE | 2024-04-20 10:42 | EX.ED.DYSGE1 ---
HPI History of Present Illness Chief Complaint: Abd Pain Informant: patient Onset/Context/Timing Timing: Waxes and wanes Narrative Narrative: Patient presents secondary to worsening right-sided abdominal pain. Patient was initially seen here on March 29 and had a negative workup with a normal CT. She had an outpatient pelvic ultrasound on April 11 that revealed a 3 cm complex right ovarian cyst. Patient states has been having waxing and waning pain, but pain has been significantly worse since 3 AM this morning. No fever or chills. She states her primary care physician was also trying to get a right upper quadrant ultrasound to ensure no acute gallbladder abnormalities given her pain tends to be in the mid right abdomen. [facility] Medical History Seasonal allergies Acquired dysplasia of left hip Anxiety Depression Home Medications ?Medication ?Instructions ?Recorded ?Last Taken ?Type escitalopram oxalate 10 mg tablet 15 mg PO DAILY 01/11/21 Unknown History buspirone 5 mg tablet 5 mg PO BID 02/06/23 Unknown History ibuprofen 600 mg tablet 600 mg PO Q6H PRN PRN pain #20 03/29/24 Unknown Rx TABLETS Allergy/AdvReac Type Severity Reaction Status Date / Time No Known Allergies Allergy Verified 04/20/24 08:06 Family History Grandfather Hypertension Diabetes Myocardial infarction CVA (cerebral vascular accident) Surgical History History of adenoidectomy H/O wisdom tooth extraction Social History Smoking Status: Current every day smoker tobacco type: e-cigarettes Electronic Cigarette Use: with nicotine alcohol intake: current alcohol intake frequency: a few times a month substance use type: marijuana and other details: Medical marijuana card what type of physical activity do you participate in: walking, aerobics and weight training frequency: daily ROS ROS ED Constitutional Constitutional ED: Denies chills or fever(s) Eyes Eyes: Denies change in vision ENT ENT ED: Denies rhinorrhea or sore throat Cardiovascular Cardiovascular: Denies chest pain or palpitations Respiratory/Chest Respiratory/Chest: Denies cough or dyspnea Gastrointestinal Gastrointestinal: Reports abdominal pain; Denies diarrhea, nausea or vomiting Genitourinary Genitourinary ED: Denies dysuria Musculoskeletal Musculoskeletal: Denies back pain or extremity pain Integumentary Denies Abrasions or rash Neurologic Neurologic: Denies headache(s) or weakness Psychiatric Psychiatric: Denies anxiety or depression Allergic/Immunologic Allergic/Immunologic ED: Denies lip swelling or urticaria EXAM Physical Exam Const Vital Signs: 04/20/24 08:05 04/20/24 08:06 Temperature 97.2 F L Temperature Source Temporal Pulse Rate 69 69 Respiratory Rate 14 14 Blood Pressure 156/90 H 156/90 H Blood Pressure Mean 112 112 Pulse Ox 98 99 Oxygen Delivery Method Room Air Positive well nourished and well developed General Appearance ED: well developed HEENT Reports moist mucous membranes Eyes EOMs intact bilaterally Chest Wall inspection of chest normal and palpation of chest normal Resp normal respiratory effort and clear to auscultation bilaterally Cardio regular rate and regular rhythm GI GI Narrative: Abdomen soft with moderate tenderness to the right mid abdomen. No guarding or rebound. No palpable masses. Extremity normal to inspection Neuro oriented x3 and no sensory deficits noted Motor Exam: strength 5/5 throughout Psych mental status grossly normal Skin no rashes or lesions noted MDM MDM MDM Narrative Medical decision making narrative: IV line initiated. Patient has already had ibuprofen and Tylenol this morning. She is given a dose of morphine and Zofran. Labwork obtained to evaluate for leukocytosis, anemia, and electrolyte derangement. Urinalysis obtained to evaluate for infection/hematuria. Ultrasound of the gallbladder as well as pelvic ultrasound to evaluate for possible torsion is obtained. History & Record Review Discussion w/independent historian: Patient and Family Additional record(s) reviewed:: Prior outpatient record, Prior ED visit and Prior labs Lab Data Attestation: I reviewed the patient's lab results. Labs: Laboratory Results - last 24 hr 04/20/24 04/20/24 08:51 09:55 WBC 8.2 RBC 3.91 L Hgb 11.5 L Hct 35.5 L MCV 90.8 MCH 29.4 MCHC 32.4 RDW Std Deviation 38.6 RDW Coeff of George 11.6 Plt Count TNP MPV 9.3 Immature Gran % (Auto) 0.100 Neut % (Auto) 53.2 Lymph % (Auto) 35.0 [place] % (Auto) 7.1 Eos % (Auto) 3.7 Baso % (Auto) 0.9 Absolute Neuts (auto) 4.4 Absolute Lymphs (auto) 2.87 Nucleated RBC % 0 Platelet Estimate ADEQUATE Sodium 137 Potassium 3.8 Chloride 106 Carbon Dioxide 25.0 Anion Gap 6 BUN 11 Creatinine 0.73 Estim Creat Clear Calc 116.82 Est GFR (MDRD) Af Amer 126 Est GFR (MDRD) Non-Af 104 BUN/Creatinine Ratio 15.0 Glucose 91 Calcium 9.2 Total Bilirubin 0.20 AST 25 ALT 16 Alkaline Phosphatase 76 Total Protein 7.7 Albumin 3.8 Globulin 3.9 Albumin/Globulin Ratio 1.0 Serum , Qual NEGATIVE Urine Color Yellow Urine Clarity Sl. Cloudy Urine pH 6.0 Ur Specific Lewis 1.015 Urine Protein 15 H Urine Glucose (UA) Normal Urine Ketones Negative Urine Occult Blood 10 H Urine Nitrite Negative Urine Bilirubin Negative Urine Urobilinogen Normal Ur Leukocyte Esterase 25 H Urine RBC 0-5 SEEN Urine WBC 0-5 SEEN Ur Squamous Epith Cells 0-5 SEEN Calcium Oxalate Crystal RARE Urine Bacteria 2+ Urine Mucus 0 SEEN Radiography Diagnostic Testing: Clinical Impression(s) from Imaging Studies Gallbladder Ultrasound 04/20/24 08:32 IMPRESSION: No acute sonographic abnormality is demonstrated in the right upper quadrant. Electronically Signed: Isrrael Arciniega MD at 10:39 EDT , Transvaginal US 04/20/24 08:32 IMPRESSION: Mild free fluid pelvis. Otherwise essentially unremarkable examination. Electronically Signed: Isrrael Arciniega MD at 10:42 EDT , Treatment and Re-Evaluation :: CBC was normal white count of 8.2 with normal differential. Hemoglobin is 11.5. Chemistry studies unremarkable with normal renal function. LFTs are normal. test negative. Urinalysis reveals 2+ bacteria with 0-5 white cells, 0-5 epithelials, no nitrites. Patient has no urinary symptoms. Right upper quadrant ultrasound reveals no acute abnormalities. Pelvic ultrasound reveals a dominant follicle in the right ovary. No evidence of an ovarian cyst at this time. Mild free fluid noted. Test results discussed with patient and mother at bedside. I do feel that her increased pain was secondary to her ovarian cyst rupturing. As fluid reabsorbs her pain should improve. Patient will follow-up with [employer] as previously scheduled. Discharge Plan Triage Chief Complaint: Abd Pain ED Provider: Jennifer Arambula Dx/Rx/DC Orders Clinical Impression: Ovarian cyst Instructions: ED Ovarian Cyst Prescriptions: No Action buspirone 5 mg tablet 5 mg PO BID escitalopram oxalate 10 MG tablet 15 mg PO DAILY Rx Instructions: CURRENTLY ON HOLD FOR THE PAST MONTH ibuprofen 600 mg tablet 600 mg PO Q6H PRN PRN (Reason: pain) Qty: 20 0RF Primary Care Provider: Nemo Easton Referrals: Nemo Easton PA [Primary Care Provider] - 1 Week if not improving Print Language: Upper Sorbian Disposition Disposition: Home, Self Care
[2024-04-20 11:18] VITALS: BP 113/74; PULSE 62; RESP 14; TEMP 36.4; O2SAT 98
== END 2024-04-20 11:19 | disposition home or self-care (01) ==
PROVIDERS: Emergency Provider Emergency Medicine; PCP Physician Assistant; Visit Provider Emergency Medicine
DX: N83.201 Unspecified ovarian cyst, right side (principal); F17.290 Nicotine dependence, other tobacco product, uncomplicated
CPT/HCPCS: 76705; 76830; 80053; 81001; 84703; 85025; 96361; 96374; 96375; 99283; J7030; A4216; J2405

== ENCOUNTER 2025-05-26 15:00 | Outpatient (RCR) | payer OTHER, SELFPAY ==
--- NOTE | 2025-05-12 16:36 | HP.PTEVAL ---
Patient's Visit Information Visit Information Visit Information: SUSAN RODRIGUEZ is a 24 year old F referred to Physical Therapy by YESSI Landaverde with a diagnosis of L shoulder pain. Date of Evaluation: 05/12/25 Physical Therapist: Dallas Delgado DPT Visit Plan Frequency: 1-2x /Week Duration: 4 Weeks Plan: 1) scapular strengthening, mid rows, horizontal abd 2) pec stretching, thoracic extension 3) US if needed to levator scapula, medial boarder of scapulae. Subjective Subjective: Pt. is here today for her initial evaluation with diagnosis of L shoulder pain. No specific mech of injury. Pt. reprots pain with lifting, Er and flexion motions. mostly at work. Sleeping does seem to help. Pt. reports pain at posterior shoulder and shoulder blade. Pt. reports weakness as well. Xrays- negative. No MRI at this point in time. Massage was not helpful. No exercises at this point in time. Pt. is hopeful to reduce symptoms in order to get back to all recreational and work activities without limitations. Pain L shoulder: Pain Intensity (Out of 10): 0 Pain Intensity Range: 0 and 6 Objective Objective: POSTURE: Pt. has general flexed posture increased thoracic kyphosis. Pt. is able to self correct. PALPATION: Pt. has marked tenderness along medial scapular board, increased pain at levator scap. NEURO: normal throughout.' ROM: Pt. has close to full ROM of B shoulders, mild increase in symptoms with end range abd and flexion. Pt. did have marked grinding in her scapulothoracic region. I have her assistances into decreased thoracic kyphosis which did reduce/abolish the grinding. MMT: Pt. has 5/5 RUE strength. L shoulder: flexion 4+/5, abd 4+/5, ext 5/5, ER 5/5, IR 5/5. Special Tests L Shoulder Lift Off Test - Subscapular Tear: Negative L Shoulder Drop Sign - IS Test: Negative L Shoulder Empty Can - SS: Negative L Shoulder Belly Press - SupScap: Negative L Shoulder Neer - Impingement: Negative L Shoulder Yeargasons - SLAP: Negative L Shoulder Speeds Test - Labrum/Biceps: Negative Balance/Special Test Scores Quick DASH Score: 18.1800 Goals Goal 1:: LTG: Pt. to be I with HEP. Goal Time Frame: 4-6 Weeks Goal 2:: STG: Pt. to to have full ROM of L shoulder without increase in symptoms or grinding. Goal Time Frame: 2-4 Weeks Goal 3:: LTG: pt. to complete all work activities without increase in symptoms. Goal Time Frame: 4-6 Weeks Goal 4:: LTG: Pt. to have decreased thoracic kyphosis. Goal Time Frame: 4-6 Weeks Goal 5:: LTG: Pt. to have symmetrical strength between BUEs. Goal Time Frame: 4-6 Weeks Rehabilitation Potential Physical Therapy Diagnosis: Pt. has signs and symptoms consistent with L shoulder pain. From testing today her symptoms seems to be more in the scapulothoracic region with marked grinding movement. She did not appear to have much RTC pathology this date. Pt. would benefit from PT to address the above limitations. Rehabilitation Potential: Good Anticipated Interventions Patient/Client Instruction: Educate patient on: Condition, Plan of Care, Risk Factors and Benefits of Fitness Program For the Purpose of:: To facilitate caregiver knowledge, To improve self management, To prevent re-injury, To improve ability to perform tasks related to life management and To improve tolerance to ADL's Therapeutic Exercise to Include: Strength training, Power training, Postural training, Flexibilty training, Passive ROM, Active ROM, Dynamic Lumbar Stabilization and Scapular Strength/Stabilization For the Purpose of:: To decrease pain, To increase ROM, To improve nutrient delivery to tissue, To increase oxygenation perfusion, To improve ability to perform ADL's, To increase tolerance to activity/condition/position and To improve performance and independence with ADL's Manual Therapy Techniques to Include: Mobilization For the Purpose of:: To decrease pain, To decrease swelling/inflammation and To increase ROM Text: Thank you for the opportunity to evaluate your patient. For Medicare and Medicare HMO plans, please review the plan of care and approve it. It will need to be FAXED BACK to us at [phone] for Medicare purposes. For Medicare only, by signing this I certify the plan of care. Please let me know if there are questions or concerns regarding this plan of care. Physician Signature: Date:
== END 2025-05-26 19:00 | disposition home or self-care (01) ==
LOC: PT 15:00
PROVIDERS: PCP Physician Assistant; Referring Provider Physician Assistant; Visit Provider Physician Assistant
DX: M25.512 Pain in left shoulder (principal)
CPT/HCPCS: 97110; 97161